=== PATIENT | female | born 1980 | race Caucasian/White ===

== ENCOUNTER 2025-03-13 09:25 | Day surgery (SDC) | payer OTHER ==
[2025-03-11 11:01] VITALS: BMI 19.3
[2025-03-13 12:02] VITALS: PULSE 84; RESP 18; TEMP 97.3
[2025-03-13 12:57] VITALS: BP 96/50
== END 2025-03-13 12:35 | disposition home or self-care (01) ==
LOC: FASU-ENDO 09:25
PROVIDERS: ATTEND Internal Medicine Gastroenterology
PROC: 0DBN8ZX Excision of Sigmoid Colon, Via Natural or Artificial Opening Endoscopic, Diagnostic (ICD-10-PCS; principal; 2025-03-13 11:29)
DX: K63.5 Polyp of colon (principal); K63.89 Other specified diseases of intestine; K64.8 Other hemorrhoids
CPT/HCPCS: 81025; 88305-TC